=== PATIENT | female | born 1975 | race Caucasian/White ===

== ENCOUNTER → 2017-05-20 | Day surgery (SDC) | payer BC ==
[~2017-05-20] MED LIST: Bupivacaine 0.5% 30 ML SDV ONE; Dexamethasone 4 MG/ML 5 ML MDV ONE; HYDROmorphone 1 MG/ML Syringe ONE; Lactated Ringers 1,000 ML IV SCH; Lidocaine 1% with EPINEPHrine 1:100,000 20 ML MDV ONE; Lidocaine 1%/Sod Bicarbonate in NS 8.4% 1 ML Syringe IV PRN; Midazolam 1 MG/ML 2 ML SDV ONE; Ondansetron 4 MG/2 ML SDV ONE; Propofol 200 MG/20 ML SDV ONE; Rocuronium 50 MG/5 ML Vial ONE; Scopolamine 1.5 MG Transdermal Patch TOP ONE; Sodium Chloride 0.9% 10 ML Syringe FLUSH PRN; Sodium Chloride 0.9% 50 ML SDV ONE; ceFAZolin 1 GM Vial ONE; fentaNYL 250 MCG/5 ML SDV ONE
--- NOTE | 2017-05-20 07:19 | PCM.PREANE ---
Preanesthetic Assessment - Anesthesia/Transfusion/Family Hx Anesthesia History: Prior Anesthesia Without Reaction Family History of Anesthesia Reaction: No Transfusion History: No Prior Transfusion(s) - Review of Systems General: No Symptoms Pulmonary: No Symptoms, Other (smoker, 1 pack per day) Cardiovascular: Chest Pain (with a lot activity, HTN, ) Gastrointestinal: Other (heartburn on a daily basis, tums works) Neurological: No Symptoms Other: Reports: None - Physical Assessment NPO Status Date: 05/20/17 NPO Status Time: 00:00 Pulse: 76 O2 Sat by Pulse Oximetry: 98 Respiratory Rate: 16 Blood Pressure: 143/80 Temperature: 36.6 C Weight: 91.626 kg ASA Class: 2 Mental Status: Alert & Oriented x3 Airway Class: Mallampati = 2 Dentition: Reports: Normal Dentition Thyro-Mental Finger Breadths: 3 Mouth Opening Finger Breadths: 3 ROM/Head Extension: Full Lungs: Clear to Auscultation, Normal Respiratory Effort Cardiovascular: Regular Rate, Regular Rhythm, No Murmurs, Other - Allergies Allergies/Adverse Reactions: Allergies Allergy/AdvReac Type Severity Reaction Status Date / Time No Known Allergies Allergy Verified 05/19/17 13:36 - Blood Blood Available: No Product(s) Available: None - Anesthesia Plan Beta Luis Enrique: Carvedilol Med Last Dose Date: 05/20/17 Med Last Dose Time: 04:30 - Acknowledgements Anesthesia Type Planned: General Anesthesia Pt an Appropriate Candidate for the Planned Anesthesia: Yes Alternatives and Risks of Anesthesia Discussed w Pt/Guardian: Yes Pt/Guardian Understands and Agrees with Anesthesia Plan: Yes PreAnesthesia Questionnaire HEENT History: Reports: Allergic Rhinitis Cardiovascular History: Reports: Hypertension, Other (See Below) Other Cardiovascular History: chest pain Respiratory History: Reports: Asthma Gastrointestinal History: Reports: Chronic Constipation, GERD Genitourinary History: Reports: None 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) Other OB/BYN History: dysmenorrhea, irregular menses, heavy nese, mild depression Musculoskeletal History: Reports: Other (See Below) Other Musculoskeletal History: carpal tunnel release Neurological History: Reports: None Psychiatric History: Reports: Anxiety, Mood Swings Endocrine/Metabolic History: Reports: Diabetes, Gestational Hematologic History: Reports: None Immunologic History: Reports: None Oncologic (Cancer) History: Reports: None Dermatologic History: Reports: None - Past Surgical History Head Surgeries/Procedures: Reports: None HEENT Surgical History: Reports: Tonsillectomy Cardiovascular Surgical History: Reports: None Respiratory Surgical History: Reports: None GI Surgical History: Reports: Cholecystectomy Female Surgical History: Reports: Section Male Surgical History: Reports: None Endocrine Surgical History: Reports: None Neurological Surgical History: Reports: None Musculoskeletal Surgical History: Reports: None Oncologic Surgical History: Reports: None Dermatological Surgical History: Reports: None - SUBSTANCE USE Smoking Status *Q: Current Every Day Smoker Recreational Drug Use History: No - HOME MEDS Home Medications: Home Meds Carvedilol [Carvedilol] 25 mg PO BID 05/19/17 [History] Gabapentin [Neurontin] 100 mg PO TID PRN 05/19/17 [History] Hydrochlorothiazide 50 mg PO DAILY 05/19/17 [History] Losartan [Cozaar] 150 mg PO DAILY 05/19/17 [History] Meloxicam [Meloxicam] 7.5 mg PO BID PRN 05/19/17 [History] traZODone HCl [Trazodone HCl] 50 - 100 mg PO BEDTIME PRN 05/19/17 [History] - CURRENT (IN HOUSE) MEDS Current Meds: Current Medications Lactated Ringer's (Ringers, Lactated) 1,000 mls @ 125 mls/hr IV ASDIRECTED MILA Lidocaine/Sodium Bicarbonate (Buffered Lidocaine 1% In Ns 8.4%) 0.25 ml IV ONETIME PRN PRN Reason: Prior to IV Start Sodium Chloride (Saline Flush) 10 ml FLUSH ASDIRECTED PRN PRN Reason: Keep Vein Open Discontinued Medications Cefazolin Sodium (Ancef) Confirm Administered Dose 2 gm .ROUTE .STK-MED ONE Stop: 05/20/17 07:10 Dexamethasone (Dexamethasone) Confirm Administered Dose 20 mg .ROUTE .STK-MED ONE Stop: 05/20/17 07:10 Fentanyl (Sublimaze) Confirm Administered Dose 250 mcg .ROUTE .STK-MED ONE Stop: 05/20/17 07:11 Hydromorphone HCl (Dilaudid) Confirm Administered Dose 1 mg .ROUTE .STK-MED ONE Stop: 05/20/17 07:10 Midazolam HCl (Versed 1 Mg/Ml) Confirm Administered Dose 2 mg .ROUTE .STK-MED ONE Stop: 05/20/17 07:11 Ondansetron HCl (Zofran) Confirm Administered Dose 4 mg .ROUTE .STK-MED ONE Stop: 05/20/17 07:10 Propofol (Diprivan 20 Ml) Confirm Administered Dose 200 mg .ROUTE .STK-MED ONE Stop: 05/20/17 07:11 Rocuronium [place] (Zemuron) Confirm Administered Dose 50 mg .ROUTE .STK-MED ONE Stop: 05/20/17 07:10
[2017-05-20 07:20] VITALS: BP 143/80
== END ==
LOC: JD.SDS 06:45
PROVIDERS: ATTEND Obstetrics & Gynecology
DX: E87.6 Hypokalemia (principal); Z53.8 Procedure and treatment not carried out for other reasons; I10 Essential (primary) hypertension; J45.909 Unspecified asthma, uncomplicated; K59.09 Other constipation; K21.9 Gastro-esophageal reflux disease without esophagitis; F41.9 Anxiety disorder, unspecified; F53 Mental and behavioral disorders associated with the puerperium, not elsewhere classified; O24.419 Gestational diabetes mellitus in pregnancy, unspecified control; Z90.49 Acquired absence of other specified parts of digestive tract; Z98.890 Other specified postprocedural states; F17.210 Nicotine dependence, cigarettes, uncomplicated; Z79.899 Other long term (current) drug therapy; Z3A.00 Weeks of gestation of pregnancy not specified
CPT/HCPCS: 36415; 80051; 84702; 85025; 86850; 86900; 86901; 93005; A9270; J7120; J0690; J1100; J1170; J2250; J2405; J2704; J3010

== ENCOUNTER 2020-11-10 15:57 | Emergency (ER) | payer BC ==
[2020-11-10 16:19] VITALS: BP 200/122; PULSE 85
[2020-11-10] MEDS ORDERED: HYDROmorphone 0.5 MG/0.5 ML Syringe IM ONE (16:40)
--- NOTE | 2020-11-10 16:48 | EDM.PDOC ---
ED HPI GENERAL MEDICAL PROBLEM - General Chief Complaint: Back Pain or Injury Stated Complaint: LOW BACK PAIN Time Seen by Provider: 11/10/20 16:30 Source of Information: Reports: Patient, RN Notes Reviewed History Limitations: Reports: No Limitations - History of Present Illness INITIAL COMMENTS - FREE TEXT/NARRATIVE: Patient is a 45-year-old female who presents to the ER for the evaluation of her low back pain. She notes this is close to the level of her iliac crest, and seems to radiate into her groin. This started roughly 3 days ago and has been constant since it has started. States now that it hurts worse to take deep breaths in. She notes that she is having pain with sitting, standing, and movement and states that she really just cannot find a position of comfort. She has no history of kidney stones, but was concerned that she may have a kidney stone due to the level of discomfort she is having. She has not had any fevers or chills, cough or shortness of breath, nausea/vomiting/diarrhea. She is not had any back injury that she can report, and she denies any trauma to the area. She has been using a heating pad and lidocaine pads, heating pad seem to help provide the most relief. She had some leftover Vicodin from a dental procedure that she had done, that she tried yesterday along with some ibuprofen and that did not seem to help at all. Patient notes she is on her menses and denies chance of . She also could not attest to if she has had blood in her urine or not due to being on her menses. Primary care provider is Luanne john right side back Pain Score (Numeric/FACES): 9 - Related Data Allergies Allergy/AdvReac Type Severity Reaction Status Date / Time No Known Allergies Allergy Verified 11/10/20 16:19 Home Meds: Home Meds Gabapentin [Neurontin] 100 mg PO TID PRN 05/19/17 [History] Losartan [Cozaar] 150 mg PO DAILY 05/19/17 [History] Meloxicam 7.5 mg PO BID PRN 05/19/17 [History] carvediloL [Carvedilol] 25 mg PO BID 05/19/17 [History] hydroCHLOROthiazide [Hydrochlorothiazide] 50 mg PO DAILY 05/19/17 [History] traZODone HCl [Trazodone HCl] 50 - 100 mg PO BEDTIME PRN 05/19/17 [History] Acetaminophen/oxyCODONE [Percocet 325-5 MG] 1 each PO Q6H PRN #12 tab 11/10/20 [Rx] Orphenadrine [Norflex] 100 mg PO BID PRN #20 tab 11/10/20 [Rx] Past Medical History HEENT History: Reports: Allergic Rhinitis Cardiovascular History: Reports: Hypertension, Other (See Below) Other Cardiovascular History: chest pain Respiratory History: Reports: Asthma Gastrointestinal History: Reports: Chronic Constipation, GERD Genitourinary History: Reports: None 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: dysmenorrhea, irregular menses, heavy nese, mild depression Musculoskeletal History: Reports: Other (See Below) Other Musculoskeletal History: carpal tunnel release Neurological History: Reports: None Psychiatric History: Reports: Anxiety, Mood Swings Endocrine/Metabolic History: Reports: Diabetes, Gestational Hematologic History: Reports: None Immunologic History: Reports: None Oncologic (Cancer) History: Reports: None Dermatologic History: Reports: None - Past Surgical History Head Surgeries/Procedures: Reports: None HEENT Surgical History: Reports: Tonsillectomy Cardiovascular Surgical History: Reports: None Respiratory Surgical History: Reports: None GI Surgical History: Reports: Cholecystectomy Female Surgical History: Reports: Section Endocrine Surgical History: Reports: None Neurological Surgical History: Reports: None Musculoskeletal Surgical History: Reports: None Oncologic Surgical History: Reports: None Dermatological Surgical History: Reports: None Social & Family History - Family History Cardiac: Reports: Hypertension Psychiatric: Reports: Depression - Tobacco Use Tobacco Use Status *Q: Current Every Day Tobacco User Years of Tobacco use: 30 Packs/Tins Daily: 1 - Caffeine Use Caffeine Use: Reports: Coffee, Soda - Recreational Drug Use Recreational Drug Use: No ED ROS GENERAL - Review of Systems Review Of Systems: Comprehensive ROS is negative, except as noted in HPI. ED EXAM,LOWER BACK PAIN/INJURY - Physical Exam Exam: See Below Exam Limited By: No Limitations General Appearance: Alert, WD/WN, No Apparent Distress Respiratory/Chest: No Respiratory Distress, Lungs Clear, Normal Breath Sounds, No Accessory Muscle Use, Chest Non-Tender Cardiovascular: Normal Peripheral Pulses, Regular Rate, Rhythm, No Edema GI/Abdominal: Normal Bowel Sounds, Soft, Non-Tender Back Exam: Muscle Spasm (over right iliac crest) Extremities: Normal Inspection, Normal Capillary Refill Neurological: Alert, Normal Mood/Affect, Normal Dorsiflexion, Normal Plantar Flexion, No Motor/Sensory Deficits Psychiatric: Normal Affect, Normal Mood Skin Exam: Warm, Dry, Intact, Normal Color, No Rash Course - Vital Signs Last Recorded V/S: Last Vital Signs Temp 97.5 F 11/10/20 16:14 Pulse 85 11/10/20 16:14 Resp 17 11/10/20 16:14 BP 200/122 H 11/10/20 16:14 Pulse Ox 95 11/10/20 16:14 - Orders/Labs/Meds Orders: Active Orders 24 hr Category Date Time Status Abdomen Pelvis wo Cont [CT] Stat Exams 11/10/20 16:40 Ordered Meds: Medications Discontinued Medications Generic Name Dose Route Start Last Admin Trade Name Freq PRN Reason Stop Dose Admin Hydromorphone HCl 0.5 mg 11/10/20 16:40 11/10/20 16:51 Hydromorphone 0.5 Mg/0.5 Ml Syringe IM 11/10/20 16:41 0.5 mg ONETIME ONE Administration - Re-Assessments/Exams Free Text/Narrative Re-Assessment/Exam: 11/10/20 16:47 Patient presents to the ER for the evaluation of her back pain, we will go ahead and get abdomen pelvis CT without contrast for evaluation of possible kidney stone, this should be able to give us images of the patient's spine as well, supers any sort of bulging disc sort of abnormality causing her pain. Likely this could just be musculoskeletal and she is having a flare of old back pain. Patient will get 1 dose of IM Dilaudid for pain management. 11/10/20 17:52 CT demonstrates no sign of a kidney stone. Appendix is within normal limits there is no appendiceal alert enlargement, or periappendiceal inflammatory change or abscess. There is 1 prominent right inguinal lymph node measuring 1.3 cm. The patient's back does show moderate central spinal stenosis at L4-L5, and bulging annulus at L5-S1. This does seem to be roughly the site of her pain on palpation. Was made aware by nursing staff that the patient did receive some relief from Dilaudid we will go ahead and give her oral Percocet tablets, and a muscle relaxer and have her follow-up in a few days time if not much better. Departure - Departure Time of Disposition: 17:54 Disposition: Home, Self-Care 01 Condition: Good Clinical Impression: Low back pain Qualifiers: Chronicity: acute Back pain laterality: bilateral Sciatica presence: without sciatica Qualified Code(s): M54.5 - Low back pain - Discharge Information *PRESCRIPTION DRUG MONITORING PROGRAM REVIEWED*: Yes *COPY OF PRESCRIPTION DRUG MONITORING REPORT IN PATIENT KVNG: No Instructions: Pain Medicine Instructions, [id number] Referrals: Luanne Hubbard PA-C [Primary Care Provider] - Forms: ED Department Discharge Additional Instructions: You have been evaluated in the ED for your low back pain. Your CT demonstrated no sign of a kidney stone, you do have some musculoskeletal pathology at L4-L5, and L5-S1, compatible with your pain that you are experiencing today. Please use ice/heat as tolerated to the affected area. You may take Tylenol 500 mg or ibuprofen 600mg q6 hrs for pain relief. Please do so until you have a tolerable level of pain with activity. Do not exceed 4000mg Tylenol or 3200mg ibuprofen in a 24 hour time period. You were given a prescription for a strong pain medication, oxycodone/acetaminophen 5/325 mg, please take 1 tab every 6 hours as needed for pain not relieved by Tylenol or ibuprofen alone. Please note this medication does contain Tylenol in it, so do not take more than 4000 mg in a 24-hour time span. These medications can be addictive, so please take as few as possible to achieve adequate pain control. These meds can also be quite constipating, recommend that you increase your oral fluid intake and take a stool softener like MiraLAX while taking these medications. Do not drive while taking this medication. You were also given a prescription for muscle relaxer, you may use this at night if it makes you too drowsy. This medication was electronically sent to the [place] [facility] located [facility] the [employer]. Please return to ED if your symptoms should change or worsen. Sepsis Event Note (ED) - Evaluation Sepsis Screening Result: No Definite Risk - Focused Exam Vital Signs: Vital Signs Temp Pulse Resp BP Pulse Ox 11/10/20 16:14 97.5 F 85 17 200/122 H 95 - My Orders Last 24 Hours: My Active Orders 11/10/20 16:40 Abdomen Pelvis wo Cont [CT] Stat - Assessment/Plan Last 24 Hours: My Active Orders 11/10/20 16:40 Abdomen Pelvis wo Cont [CT] Stat
--- NOTE | 2020-11-13 07:46 | CT ---
CT abdomen and pelvis Technique: Multiple axial sections were obtained from above the dome of the diaphragm inferiorly through the pubic symphysis. Intravenous and oral contrast were not utilized. Study performed as a ureteral stone protocol. Comparison: Prior abdominal ultrasound study of 07/15/15. Findings: Visualized lung bases show nothing acute. Liver shows scattered areas of fatty infiltration. Spleen appears within normal limits. Surgical clips are seen from prior cholecystectomy. Adrenal glands show no nodule. Pancreas shows no discrete abnormality. Aorta shows atherosclerotic calcification without aneurysm. No retroperitoneal adenopathy or mesenteric abnormalities are seen. Appendix is seen and is normal. Kidneys show no abnormal calcifications. No discrete renal mass is appreciated. Both ureters were seen and show no evidence of obstructing calculi. No pelvic mass or adenopathy is appreciated. Slightly prominent lymph node is noted within the right inguinal region measuring 1.7 cm. Bone window settings were reviewed which show mild scattered degenerative change within the spine. Impression: 1. No renal calculi, ureteral dilatation or ureteral stone is seen. 2. Slightly prominent right inguinal lymph node which by my measurements is 1.7 cm. Since no other adenopathy is seen this is most likely enlarged on a prior inflammatory basis. 3. Scattered fatty infiltration within the liver. 4. Nothing acute is otherwise seen. Diagnostic code #2 I minimally disagree with preliminary report from [facility], finalized on 11/10/20, 6:27 PM CDT, code 2
== END 2020-11-10 18:40 | disposition home or self-care (01) ==
LOC: JD.ED 15:57
DX: M54.5 Low back pain (principal); I10 Essential (primary) hypertension; Z79.899 Other long term (current) drug therapy; Z72.0 Tobacco use
CPT/HCPCS: 74176; 96372; 99283; J1170

== ENCOUNTER 2021-01-17 05:19 | Emergency (ER) | payer BC ==
[2021-01-17 05:35] VITALS: BP 145/98; PULSE 98
[2021-01-17] MEDS ORDERED: Famotidine 20 MG Tab PO ONE (05:52)
--- NOTE | 2021-01-17 05:58 | EDM.PDOC ---
ED HPI GENERAL MEDICAL PROBLEM - General Chief Complaint: Allergic Reaction Stated Complaint: EYE SWELLING Time Seen by Provider: 01/17/21 05:23 Source of Information: Reports: Patient History Limitations: Reports: No Limitations - History of Present Illness INITIAL COMMENTS - FREE TEXT/NARRATIVE: Patient is a 45-year-old female who is complaining of having left facial swelling which is started a little bit last night but got much worse this morning upon awakening. Patient is also having pain in this area and notes that her lower eyelid on the left is very swollen. She denies any trauma to this area. She states she has been having some symptoms especially pain since she had both cheeks injected approximately 1 month ago. She was on some steroids over a week ago for some swelling and pain at the injection sites. She denies any fever chills and denies any change in color of her cheeks which she states are always red. She is not taking anything for her above pain though she does have some pain medicine at home from a previous dental procedure. Patient is very alarmed because she read online that when you have swelling in area it can cause tissue necrosis and she is worried that that may occur on her face currently. I have reassured her that the swelling that would take to cause tissue necrosis is in order of magnitude or more greater than what she is cu rrently experiencing and I do not have any concern for her that that might occur. Duration: Getting Worse Location: Reports: Face Quality: Reports: Ache Improves with: Reports: None Worsens with: Reports: None Context: Reports: Other (Recent injection 1 month ago both cheeks.) Associated Symptoms: Reports: No Other Symptoms Left Cheek Pain Score (Numeric/FACES): 8 - Related Data Allergies Allergy/AdvReac Type Severity Reaction Status Date / Time No Known Allergies Allergy Verified 11/10/20 16:19 Home Meds: Home Meds Gabapentin [Neurontin] 100 mg PO TID PRN 05/19/17 [History] Losartan [Cozaar] 150 mg PO DAILY 05/19/17 [History] carvediloL [Carvedilol] 25 mg PO BID 05/19/17 [History] hydroCHLOROthiazide [Hydrochlorothiazide] 50 mg PO DAILY 05/19/17 [History] traZODone HCl [Trazodone HCl] 50 - 100 mg PO BEDTIME PRN 05/19/17 [History] Orphenadrine [Norflex] 100 mg PO BID PRN #20 tab 11/10/20 [Rx] Past Medical History HEENT History: Reports: Allergic Rhinitis Cardiovascular History: Reports: Hypertension, Other (See Below) Other Cardiovascular History: chest pain Respiratory History: Reports: Asthma Gastrointestinal History: Reports: Chronic Constipation, GERD Genitourinary History: Reports: None 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, irregular menses, heavy nese, mild depression Musculoskeletal History: Reports: Other (See Below) Other Musculoskeletal History: carpal tunnel release Neurological History: Reports: None Psychiatric History: Reports: Anxiety, Mood Swings Endocrine/Metabolic History: Reports: Diabetes, Gestational Hematologic History: Reports: None Immunologic History: Reports: None Oncologic (Cancer) History: Reports: None Dermatologic History: Reports: None - Past Surgical History Head Surgeries/Procedures: Reports: None HEENT Surgical History: Reports: Tonsillectomy Cardiovascular Surgical History: Reports: None Respiratory Surgical History: Reports: None GI Surgical History: Reports: Cholecystectomy Female Surgical History: Reports: Section Endocrine Surgical History: Reports: None Neurological Surgical History: Reports: None Musculoskeletal Surgical History: Reports: None Oncologic Surgical History: Reports: None Dermatological Surgical History: Reports: None Social & Family History - Family History Cardiac: Reports: Hypertension Psychiatric: Reports: Depression - Caffeine Use Caffeine Use: Reports: Coffee, Soda ED ROS ALLERGIC REACTION - Review of Systems Review Of Systems: Comprehensive ROS is negative, except as noted in HPI. ED EXAM GENERAL NO PERIP PULSE - Physical Exam Exam: See Below Exam Limited By: No Limitations General Appearance: Alert, Anxious Head: Facial Swelling (Left cheek and left lower eyelid are mildly swollen.), Facial Tenderness Neck: Normal Inspection Respiratory/Chest: No Respiratory Distress Extremities: Normal Inspection Neurological: Alert, Oriented Psychiatric: Anxious, Tearful Skin Exam: Warm, Dry, No Rash. No: Increased Warmth Course - Vital Signs Text/Narrative:: Patient is receiving 1 dose of Pepcid here as an antihistamine since she states Benadryl will make her too drowsy and she does not want to use it. I am recommending she use an ice pack on her face. She may take pain medicine which she has at home if she needs it. Recommend she follow-up with clinic today to be rechecked by them. She may return to ER anytime if she is worse. And she may continue to use Pepcid [id number] if it is helping her symptoms. Last Recorded V/S: Last Vital Signs Temp 98.5 F 01/17/21 05:30 Pulse 98 01/17/21 05:30 Resp 18 01/17/21 05:30 BP 145/98 H 01/17/21 05:30 Pulse Ox 100 01/17/21 05:30 - Orders/Labs/Meds Orders: Active Orders 24 hr Category Date Time Status Famotidine [Pepcid] Med 01/17/21 05:52 Once 20 mg PO ONETIME ONE Departure - Departure Time of Disposition: 05:58 Disposition: Home, Self-Care 01 Condition: Good Clinical Impression: Swelling of left side of face - Discharge Information Referrals: Luanne Hubbard PA-C [Primary Care Provider] - Additional Instructions: Ice packs to face. Continue with ibuprofen. Benadryl as needed. You are on pain medicines if needed. Follow-up with clinic today. Return to ER if symptoms are worse. Sepsis Event Note (ED) - Evaluation Sepsis Screening Result: No Definite Risk - Focused Exam Vital Signs: Vital Signs Temp Pulse Resp BP Pulse Ox 01/17/21 05:30 98.5 F 98 18 145/98 H 100 - My Orders Last 24 Hours: My Active Orders 01/17/21 05:52 Famotidine [Pepcid] 20 mg PO ONETIME ONE - Assessment/Plan Last 24 Hours: My Active Orders 01/17/21 05:52 Famotidine [Pepcid] 20 mg PO ONETIME ONE
== END 2021-01-17 06:06 | disposition home or self-care (01) ==
LOC: JD.ED 05:19
DX: R22.0 Localized swelling, mass and lump, head (principal); I10 Essential (primary) hypertension; Z79.899 Other long term (current) drug therapy
CPT/HCPCS: 99283; A9270

== ENCOUNTER 2021-02-01 10:26 | Emergency (ER) | payer BC ==
[2021-02-01 10:53] VITALS: BP 200/147; PULSE 117
--- NOTE | 2021-02-01 11:12 | EDM.PDOC ---
ED HPI GENERAL MEDICAL PROBLEM - General Chief Complaint: Lower Extremity Injury/Pain Stated Complaint: RIGHT KNEE INJURY Time Seen by Provider: 02/01/21 10:49 Source of Information: Reports: Patient History Limitations: Reports: No Limitations - History of Present Illness INITIAL COMMENTS - FREE TEXT/NARRATIVE: The patient presents with right knee pain. She said last night she was putting a baby in a swing and she was kneeling down. When she started to get up she heard a pop and severe pain and she went down to the ground. The medial part of her knee swelled up and she continues to have pain. She just saw Dr Pinzon for that knee and she was told she has arthritis in the knee. Onset: Sudden Duration: Day(s): (last night) Location: Reports: Lower Extremity, Right (knee) Quality: Reports: Sharp Severity: Severe Improves with: Reports: Immobilization Worsens with: Reports: Movement Context: Denies: Trauma Associated Symptoms: Reports: No Other Symptoms Right Knee Pain Score (Numeric/FACES): 6 - Related Data Allergies Allergy/AdvReac Type Severity Reaction Status Date / Time No Known Allergies Allergy Verified 02/01/21 10:48 Home Meds: Home Meds Gabapentin [Neurontin] 100 mg PO TID PRN 05/19/17 [History] Losartan [Cozaar] 150 mg PO DAILY 05/19/17 [History] carvediloL [Carvedilol] 25 mg PO BID 05/19/17 [History] hydroCHLOROthiazide [Hydrochlorothiazide] 50 mg PO DAILY 05/19/17 [History] traZODone HCl [Trazodone HCl] 50 - 100 mg PO BEDTIME PRN 05/19/17 [History] Past Medical History HEENT History: Reports: Allergic Rhinitis Cardiovascular History: Reports: Hypertension Other Cardiovascular History: chest pain Respiratory History: Reports: Asthma Gastrointestinal History: Reports: Chronic Constipation, GERD Genitourinary History: Reports: None [employer] History: Reports: Other (See Below) Other [employer] History: dysmenorrhea, irregular menses, heavy nese, mild depression Musculoskeletal History: Reports: Other (See Below) Other Musculoskeletal History: carpal tunnel release Neurological History: Reports: None Psychiatric History: Reports: Anxiety, Mood Swings Endocrine/Metabolic History: Reports: Diabetes, Gestational Hematologic History: Reports: None Immunologic History: Reports: None Oncologic (Cancer) History: Reports: None Dermatologic History: Reports: None - Infectious Disease History Infectious Disease History: Reports: Chicken Pox - Past Surgical History HEENT Surgical History: Reports: Tonsillectomy GI Surgical History: Reports: Cholecystectomy Female Surgical History: Reports: Section Neurological Surgical History: Reports: None Oncologic Surgical History: Reports: None Social & Family History - Family History Cardiac: Reports: Hypertension Psychiatric: Reports: Depression - Tobacco Use Tobacco Use Status *Q: Current Every Day Tobacco User Years of Tobacco use: 30 Packs/Tins Daily: 1 - Caffeine Use Caffeine Use: Reports: Coffee - Recreational Drug Use Recreational Drug Use: No Review of Systems - Review of Systems Review Of Systems: See Below Constitutional: Reports: No Symptoms Eyes: Reports: No Symptoms Ears: Reports: No Symptoms Nose: Reports: No Symptoms Mouth/Throat: Reports: No Symptoms Respiratory: Reports: No Symptoms Cardiovascular: Reports: No Symptoms GI/Abdominal: Reports: No Symptoms Genitourinary: Reports: No Symptoms Musculoskeletal: Reports: Other (right knee) ED EXAM, GENERAL - Physical Exam Exam: See Below Exam Limited By: No Limitations General Appearance: Alert, No Apparent Distress Ears: Normal External Exam Nose: Normal Inspection Head: Atraumatic, Normocephalic Neck: Normal Inspection Respiratory/Chest: No Respiratory Distress Extremities: Other (Pain upon palpation with edema to the medial right knee. Good sensation and pulses distally.) Course - Vital Signs Last Recorded V/S: Last Vital Signs Temp 97.4 F 02/01/21 10:50 Pulse 117 H 02/01/21 10:50 Resp 14 02/01/21 10:50 BP 200/147 H 02/01/21 10:50 Pulse Ox 99 02/01/21 10:50 - Orders/Labs/Meds Orders: Active Orders 24 hr Category Date Time Status Knee Min 4V Rt [CR] Stat Exams 02/01/21 11:01 Ordered - Re-Assessments/Exams Free Text/Narrative Re-Assessment/Exam: 02/01/21 11:11 I ordered an x-ray of her knee but she refused. 02/01/21 11:13 I went in to talk to her and she was gone. The nurse said she left without saying anything. She may have gotten in to see Dr Pinzon she said she was waiting on a call. Departure - Departure Time of Disposition: 11:15 Disposition: Eloped 07 Condition: Good Clinical Impression: Right knee sprain Qualifiers: Encounter type: initial encounter Involved ligament of knee: unspecified ligament Qualified Code(s): S83.91XA - Sprain of unspecified site of right knee, initial encounter - Discharge Information *PRESCRIPTION DRUG MONITORING PROGRAM REVIEWED*: Not Applicable *COPY OF PRESCRIPTION DRUG MONITORING REPORT IN PATIENT KVNG: Not Applicable Referrals: Luanne Hubbard PA-C [Primary Care Provider] - Marino Pinzon MD [Physician] - Forms: ED Department Discharge Sepsis Event Note (ED) - Evaluation Sepsis Screening Result: No Definite Risk - Focused Exam Vital Signs: Vital Signs Temp Pulse Resp BP Pulse Ox 02/01/21 10:50 97.4 F 117 H 14 200/147 H 99 - My Orders Last 24 Hours: My Active Orders 02/01/21 11:01 Knee Min 4V Rt [CR] Stat - Assessment/Plan Last 24 Hours: My Active Orders 02/01/21 11:01 Knee Min 4V Rt [CR] Stat
== END 2021-02-01 11:13 | disposition left against medical advice (07) ==
LOC: JD.ED 10:26
DX: S83.91XA Sprain of unspecified site of right knee, initial encounter (principal); I10 Essential (primary) hypertension; Z72.0 Tobacco use; Z79.899 Other long term (current) drug therapy; X50.1XXA Overexertion from prolonged static or awkward postures, initial encounter
CPT/HCPCS: 99282; 99283